=== PATIENT | male | born 1970 | race Hispanic/Latino ===

== ENCOUNTER → 2017-10-04 | Outpatient (CLI) | payer OTHER | LOC: OIH 12:42 | PROVIDERS: ATTEND Nurse Practitioner Adult Health | DX: Z13.6 Encounter for screening for cardiovascular disorders (principal) | CPT/HCPCS: 75571 ==

== ENCOUNTER 2020-01-13 14:11 | Emergency (ER) | payer BC, OTHER ==
[2020-01-13] MEDS ORDERED: SODIUM CHLORIDE 0.9% 1000ML 1,000 ML IV ONE (14:42)
[2020-01-13] MEDS ORDERED: ONDANSETRON HCL 4 MG/2 ML VIAL ONE (14:44)
== END 2020-01-13 16:02 | disposition home or self-care (01) ==
LOC: EDH 14:11
DX: U07.1 COVID-19 (principal); E86.0 Dehydration; I10 Essential (primary) hypertension; E78.5 Hyperlipidemia, unspecified
CPT/HCPCS: 36415; 71045; 80048; 84484; 85025; 85378; 93005; 96361; 96374; 99285; J2405; J7030

== ENCOUNTER 2020-01-16 15:01 | Inpatient (IN) | payer BC ==
[~2020-01-16] VITALS: Ht 185.4 cm; Wt 84.1 kg
[2020-01-16] MEDS ORDERED: ACETAMINOPHEN EXTRA STRENGTH 500 MG TABLET ONE (15:43)
[2020-01-16] MEDS ORDERED: DEXAMETHASONE SOD PHOSPHATE 10MG/ML 1ML VIAL ONE (16:19)
[2020-01-16] MEDS ORDERED: ONDANSETRON HCL 4 MG/2 ML VIAL IVP PRN (18:15)
[2020-01-16] MEDS: ZOSYN 3.375GM+NS 50ML 50 ML IV SCH (18:15)
[2020-01-16] MEDS ORDERED: ACETAMINOPHEN 325 MG TAB PO PRN (18:15)
[2020-01-16] MEDS ORDERED: HYDRALAZINE HCL 20 MG/ML VIAL IV PRN (18:30)
[2020-01-16] MEDS: SODIUM CHLORIDE 0.9% 1000ML 1,000 ML IV SCH (18:30)
[2020-01-16] MEDS ORDERED: AZITHROMYCIN 500MG+NS 250ML 250 ML IV ONE ×2 (18:59→20:55)
[2020-01-16] MEDS: AZITHROMYCIN 500MG+NS 250ML 250 ML IV SCH (19:00)
[2020-01-16] MEDS ORDERED: METHYLPREDNISOLONE SOD SUCC 40MG/ML 1ML ONE (20:54)
[2020-01-16] MEDS ORDERED: ZOSYN 3.375GM+NS 50ML 50 ML IV ONE (20:54)
[2020-01-16] MEDS ORDERED: DOXYCYCLINE HYCLATE 100 MG TABLET PO ONE (20:54)
[2020-01-16] MEDS ORDERED: ACETAMINOPHEN 325 MG TAB ONE (20:55)
[2020-01-16] MEDS ORDERED: SODIUM CHLORIDE 0.9% 1000ML 1,000 ML IV ONE (20:57)
[2020-01-16] MEDS: METHYLPREDNISOLONE SOD SUCC 40MG/ML 1ML IVP SCH (21:00)
[2020-01-16] MEDS ORDERED: DOXYCYCLINE HYCLATE 100 MG TABLET PO SCH (21:00)
[2020-01-17] MEDS: ZOSYN 3.375GM+NS 50ML 50 ML IV SCH ×3 (02:15→20:43)
[2020-01-17] MEDS ORDERED: ZOSYN 3.375GM+NS 50ML 50 ML IV ONE (04:36)
[2020-01-17] MEDS: SODIUM CHLORIDE 0.9% 1000ML 1,000 ML IV SCH (07:50)
[2020-01-17] MEDS ORDERED: METHYLPREDNISOLONE SOD SUCC 40MG/ML 1ML ONE (08:16)
[2020-01-17] MEDS: METHYLPREDNISOLONE SOD SUCC 40MG/ML 1ML IVP SCH ×2 (09:00→20:41)
--- NOTE | 2020-01-17 10:26 | NUR ---
CHART CHECK COMPLETED. Pt IS A 49 Y.O. MALE ADMITTED SECONDARY TO ACUTE RESPIRATORY FAILURE AND COVID POSITIVE. Pt HAS A PAST MEDICAL HISTORY SIGNIFICANT FOR HYPERLIPIDEMIA AND HYPERTENSION. Pt WITH NO C/O DYSPHAGIA AT THIS TIME. PLEASE REQUEST FORMAL EVALUATION IF RESPIRATORY STATUS DECLINES AND Pt DEVELOPS S/S OF ASPIRATION SUCH COUGH RESPONSE, THROAT CLEAR OR WET VOCAL QUALITY. Addendum: 01/17/20 at [address] Amended: Links added.
[2020-01-17 12:00] VITALS: BP 117/74; PULSE 85; RESP 24
[2020-01-17] MEDS ORDERED: PHARMACY COMMUNICATION MISC SCH (12:45)
[2020-01-17] MEDS ORDERED: ALBUTEROL INHALER 90MCG/INH IH PRN (13:30)
--- NOTE | 2020-01-17 15:22 | NUR ---
DCP: HOME SW spoke to pt's Erin Hernandez [phone]. Per , prior to admission pt was independent, driving, works at [employer] and drives to at night. believes he was exposed at work. Pt has no DME or in home care serviices. PCP is Jojo Vega and he uses [facility] for rx medication. [place] Addendum: 01/17/20 at 1525 by GIOVANA GALVAN SS Amended: Links added.
[2020-01-17 16:00] VITALS: BP 134/89; PULSE 87; RESP 17
[2020-01-17 17:45] VITALS: TEMP 98.3
[2020-01-17] MEDS: AZITHROMYCIN 500MG+NS 250ML 250 ML IV SCH (18:03)
[2020-01-17 20:33] VITALS: BP 115/77; PULSE 93; RESP 17; TEMP 98.6
[2020-01-17 23:44] VITALS: BP 131/89; PULSE 83; RESP 17; TEMP 98.5
[2020-01-18] MEDS: ACETAMINOPHEN 325 MG TAB PO PRN ×2 (02:41→10:25)
[2020-01-18 03:25] VITALS: BP 125/71; PULSE 74; RESP 17; TEMP 98.5
[2020-01-18] MEDS: SODIUM CHLORIDE 0.9% 1000ML 1,000 ML IV SCH (05:23)
[2020-01-18] MEDS: ZOSYN 3.375GM+NS 50ML 50 ML IV SCH ×3 (05:23→21:24)
[2020-01-18 08:00] VITALS: BP 113/74; PULSE 68; RESP 19; TEMP 98.2
[2020-01-18] MEDS: METHYLPREDNISOLONE SOD SUCC 40MG/ML 1ML IVP SCH ×3 (09:40→21:24)
[2020-01-18 12:00] VITALS: BP 116/69; PULSE 87; RESP 18; TEMP 99.6
[2020-01-18 16:00] VITALS: BP 116/74; PULSE 77; RESP 17; TEMP 98.6
[2020-01-18] MEDS: AZITHROMYCIN 500MG+NS 250ML 250 ML IV SCH (18:44)
[2020-01-18 20:36] VITALS: BP 114/76; PULSE 72; RESP 20; TEMP 98.2
[2020-01-18 23:34] VITALS: BP 120/80; PULSE 80; RESP 20; TEMP 98.4
--- NOTE | 2020-01-18 23:53 | NUR ---
Assessment Patient is alert and oriented times 4. No complaints of any pain. Patient had his IV infiltrated upon admission. I tried to start an IV and i could not get it to thread in. The charge nurse tried and could not get it either. The patient refused to have anyone else try. he signed a refusal for treatment. Will continue to follow.
[2020-01-19 03:22] VITALS: BP 122/78; PULSE 72; RESP 19; TEMP 98.3
[2020-01-19] MEDS: ZOSYN 3.375GM+NS 50ML 50 ML IV SCH ×2 (05:32→14:22)
[2020-01-19 08:17] VITALS: BP_SYST 113; BP_SYST 126; BP_DIAS 68; BP_DIAS 73; PULSE 61; RESP 18; TEMP 98
[2020-01-19] MEDS: ENALAPRIL MALEATE 10 MG TABLET PO SCH (09:30)
[2020-01-19] MEDS: METHYLPREDNISOLONE SOD SUCC 40MG/ML 1ML IVP SCH ×3 (09:30→20:13)
[2020-01-19 10:15] VITALS: BP 119/77; PULSE 72; RESP 18; TEMP 98.3
[2020-01-19] MEDS: FENOFIBRATE MICRONIZED 134 MG PO SCH (12:08)
[2020-01-19] MEDS: ENOXAPARIN SODIUM 40 MG/0.4 ML SYRINGE SQ SCH (12:08)
[2020-01-19 16:31] VITALS: BP 119/85; PULSE 67; RESP 18; TEMP 98
[2020-01-19] MEDS: AZITHROMYCIN 500MG+NS 250ML 250 ML IV SCH (18:41)
--- NOTE | 2020-01-19 18:44 | NUR ---
COVID+ PT. AWAKE IN BED IN NO APPARENT DISTRESS. ISOLATION PRECAUTIONS MAINTAINED. DENIES ANY NEEDS/PAIN. RESPIRATIONS EVEN AND UNLABORED AT REST. O2 AT 2L VIA NC, TOLERATING. REMAINS ON SOLU-MEDROL IVP. ABX THERAPY ZITHROMAX CONTINUES. SHAE Moore'TRAN. AMBULATORY IN ROOM. SR ON TELE. [facility]ER[facility] INITIATED THIS SHIFT, EDUCATION PROVIDED WITH UNDERSTANDING VERBALIZED. CONTINUOUS MONITORING ONGOING. SAFETY MEASURES IN PLACE.
[2020-01-19 19:00] VITALS: BP 109/76; PULSE 87; RESP 18; TEMP 98.2
[2020-01-19 23:40] VITALS: BP 124/80; PULSE 72; RESP 18; TEMP 98.1
--- NOTE | 2020-01-20 02:15 | NUR ---
ASSESSMENT PT. ALERT AND ORIENTED TIMES 4. NO COMPLAINTS OF ANY PAIN. PATIENT TOOKA SHOWER TONIGHT. PATIENT DOWN TO 2 LITERS OF OXYGEN. WILL CONTINUE TO MONITOR THE PATIENTS CONDITION.
[2020-01-20 03:57] VITALS: BP 105/69; PULSE 56; RESP 18; TEMP 97.8
[2020-01-20 08:49] VITALS: BP 121/79; PULSE 61; RESP 18; TEMP 98.4
[2020-01-20] MEDS: ENALAPRIL MALEATE 10 MG TABLET PO SCH (09:39)
[2020-01-20] MEDS: METHYLPREDNISOLONE SOD SUCC 40MG/ML 1ML IVP SCH ×3 (09:39→19:55)
[2020-01-20] MEDS: FENOFIBRATE MICRONIZED 134 MG PO SCH ×2 (09:40→19:55)
[2020-01-20] MEDS: ENOXAPARIN SODIUM 40 MG/0.4 ML SYRINGE SQ SCH (09:40)
[2020-01-20 12:52] VITALS: BP 129/79; PULSE 72; RESP 18; TEMP 98.6
[2020-01-20 16:37] VITALS: BP 115/79; PULSE 71; RESP 18; TEMP 98.4
[2020-01-20] MEDS: AZITHROMYCIN 500MG+NS 250ML 250 ML IV SCH (18:28)
--- NOTE | 2020-01-20 18:35 | NUR ---
COVID+ PT. AWAKE IN BED IN NO APPARENT DISTRESS. ISOLATION PRECAUTIONS MAINTAINED. DENIES ANY NEEDS/PAIN. RESPIRATIONS EVEN AND UNLABORED AT REST. O2 AT 2L VIA NC, TOLERATING. REMAINS ON SOLU-MEDROL IVP. ABX THERAPY AZITHROMYCIN CONTINUES. AMBULATORY IN ROOM. SR ON TELE. MONITORING ONGOING. SAFETY MEASURES IN PLACE.
[2020-01-20 20:08] VITALS: BP 114/77; PULSE 66; RESP 22; TEMP 98.2
[2020-01-21 00:08] VITALS: BP 119/81; PULSE 74; RESP 18; TEMP 98
--- NOTE | 2020-01-21 03:06 | NUR ---
assessment patient is alert and oriented times 4. no complaints of any pain. patint is on 1 liter of oxygen. will continue to monitor.
[2020-01-21 04:08] VITALS: BP 117/79; PULSE 64; RESP 20; TEMP 98
[2020-01-21 08:00] VITALS: BP 117/80; PULSE 65; RESP 18; TEMP 98.1
[2020-01-21] MEDS: ENOXAPARIN SODIUM 40 MG/0.4 ML SYRINGE SQ SCH (09:27)
[2020-01-21] MEDS: METHYLPREDNISOLONE SOD SUCC 40MG/ML 1ML IVP SCH ×3 (09:27→20:13)
[2020-01-21] MEDS: ENALAPRIL MALEATE 10 MG TABLET PO SCH (09:27)
[2020-01-21 12:00] VITALS: BP 130/79; PULSE 72; RESP 18; TEMP 98
--- NOTE | 2020-01-21 17:37 | NUR ---
COVID+ PT, ISOLATION PRECAUTIONS MAINTAINED. OOB IN CHAIR AT THIS TIME IN NO APPARENT DISTRESS. DENIES ANY NEEDS/PAIN. RESPIRATIONS EVEN AND UNLABORED AT REST. O2 SATS STABLE ON ROOM AIR. SOLU-MEDROL IVP THERAPY DECREASED TO BID. ABX THERAPY AZITHROMYCIN CONTINUES. AMBULATORY IN ROOM. SR ON TELE. MONITORING ONGOING. SAFETY MEASURES IN PLACE.
[2020-01-21] MEDS: AZITHROMYCIN 500MG+NS 250ML 250 ML IV SCH (18:31)
[2020-01-21 20:20] VITALS: BP 131/93; PULSE 70; RESP 19; TEMP 98.2
[2020-01-21] MEDS ORDERED: METHYLPREDNISOLONE SOD SUCC 125MG/2ML VIAL IVP SCH (21:00)
[2020-01-21] MEDS ORDERED: METHYLPREDNISOLONE SOD SUCC 125MG/2ML VIAL IVP ONE (21:00)
[2020-01-22 00:40] VITALS: BP 122/87; PULSE 78; RESP 19; TEMP 98.3
--- NOTE | 2020-01-22 02:37 | NUR ---
assessment patient is alert and oriented times 4 no complaints of any pain. Patient is currently on room air and feeling well. Wants to go home in the morning. willl continue to monitor.
[2020-01-22 04:24] VITALS: BP 113/75; PULSE 67; RESP 18; TEMP 97.9
[2020-01-22 08:00] VITALS: BP 112/67; PULSE 59; RESP 20; TEMP 98.4
[2020-01-22] MEDS ORDERED: DEXAMETHASONE 4 MG TAB PO SCH (09:00)
[2020-01-22] MEDS: ENALAPRIL MALEATE 10 MG TABLET PO SCH (09:56)
[2020-01-22] MEDS: ENOXAPARIN SODIUM 40 MG/0.4 ML SYRINGE SQ SCH (09:57)
[2020-01-22] MEDS: FENOFIBRATE MICRONIZED 134 MG PO SCH (09:57)
[2020-01-22 11:00] VITALS: BP 108/70; PULSE 72; RESP 20; TEMP 98.1
--- NOTE | 2020-01-22 16:45 | NUR ---
DR. MACIAS ROUNDED WITH ORDER PLACED TO DISCHARGE HOME. COVID+, ISOLATION PRECAUTIONS MAINTAINED. NO APPARENT DISTRESS NOTED. COMFORTABLE ON ROOM AIR. DENIED PAIN. DISCHARGE TEACHING DONE, HANDOUTS GIVEN. HANDWRITTEN PRESCRIPTIONS GIVEN TO PATIENT. VERBALIZED UNDERSTANDING. TRANSFERRED VIA WHEELCHAIR TO PRIVATE VEHICLE FOR DISCHARGE HOME. ACCOMPANIED BY .
== END 2020-01-22 16:47 | disposition home or self-care (01) | DRG 177 ==
LOC: EDH 15:01 → EDHIP 15:02 → 4BH 01-17 12:04
PROVIDERS: ADMIT Internal Medicine; ATTEND Internal Medicine
DX: U07.1 COVID-19 (principal); J12.89 Other viral pneumonia; J96.01 Acute respiratory failure with hypoxia; I10 Essential (primary) hypertension; E78.5 Hyperlipidemia, unspecified; Z86.19 Personal history of other infectious and parasitic diseases

== ENCOUNTER 2023-05-13 08:25 | Emergency (ER) | payer BC, OTHER ==
[~2023-05-13] VITALS: Ht 185.4 cm; Wt 88.5 kg
[~2023-05-13 08:25] MED LIST: ENAL-89 PO; FENO134C21 PO
[2023-05-13 09:26] LABS: BASOPHILS # (AUTO) 0.07 K/uL (0.00-0.20); BASOPHILS % (AUTO) 0.9 % (0.0-5.0); EOSINOPHILS # (AUTO) 0.08 K/uL (0.00-0.70); EOSINOPHILS % (AUTO) 1.1 % (0.0-8.0); HEMATOCRIT 40.7 % (42-54); IMMATURE GRANULOCYTE ABSOLUTE 0.03 K/uL (0-1); LYMPHOCYTES # (AUTO) 1.7 K/uL (1.0-4.8); MEAN CORPUSCULAR HGB CONC 33.4 g/dL (32.0-36.0); MEAN CORPUSCULAR VOLUME 89.8 fL (79-99); MONOCYTES # (AUTO) 0.6 K/uL (0.1-1.0); MONOCYTES % (AUTO) 8.2 % (3.0-13.0); NEUTROPHILS % (AUTO) 66.4 % (40.0-77.0); PLATELET COUNT (AUTO) 301 K/uL (130-400); RED BLOOD CELL COUNT(AUTO) 4.53 MIL/uL (4.50-6.20); RED CELL DISTRIBUTION WIDTH 11.9 % (11.0-15.5); WHITE BLOOD COUNT (AUTO) 7.6 K/uL (4.8-10.8)
[2023-05-13] MEDS ORDERED: 0.9%NACL 1000ML 1,000 ML IV ONE (09:30)
[2023-05-13 09:33] LABS: CREATININE 1.2 mg/dL (0.5-1.5); POTASSIUM 3.9 mmol/L (3.5-5.1)
[2023-05-13 09:38] LABS: ALBUMIN 3.7 g/dL (3.5-5.0); APPEARANCE,URINE CLEAR (CLEAR); BILIRUBIN,TOTAL 0.2 mg/dL (0.2-1.0); BILIRUBIN,URINE NEGATIVE (NEGATIVE); COLOR,URINE YELLOW (YELLOW); GLUCOSE, URINE (UA) NEGATIVE (NEGATIVE); KETONES,URINE NEGATIVE (NEGATIVE); LEUKOCYTE ESTERASE ,URINE NEGATIVE Leu/uL (NEGATIVE); NITRATE,URINE NEGATIVE (NEGATIVE); OCCULT BLOOD,URINE NEGATIVE (NEGATIVE); PH,URINE 5.5 (5.0-8.0); PROTEIN,URINE 10 mg/dL (NEGATIVE); TOTAL PROTEIN, SERUM 7.5 g/dL (6.0-8.3); UROBILINOGEN,URINE 0.2 mg/dL (0.2-1.0)
[2023-05-13 09:45] LABS: ADD UA MICROSCOPIC YES
[2023-05-13 10:40] LABS: MUCUS,URINE FEW LPF (None Seen); RBC,URINE 0-1 /HPF (0-1); SQUAMOUS EPITHELIAL CELL,UR RARE /HPF (0-2); WBC,URINE 0-1 /HPF (0-1)
[2023-05-13] MEDS ORDERED: IOHEXOL 350 MG/ML 100ML INFUS..BTL IV ONE (10:55)
[2023-05-13 12:46] VITALS: BP 132/90; PULSE 76; RESP 16; O2SAT 99
== END 2023-05-13 12:55 | disposition home or self-care (01) ==
LOC: EDH 08:25
DX: R10.32 Left lower quadrant pain (principal); E78.00 Pure hypercholesterolemia, unspecified; I10 Essential (primary) hypertension; Z79.899 Other long term (current) drug therapy
CPT/HCPCS: 99285; 74178; 96360; 80053; 83690; 85025; 81001; 36415; J7030; Q9967